=== PATIENT | male | born 1965 | race Caucasian/White ===

== ENCOUNTER 2021-10-08 00:16 | Emergency (ER) | payer OTHER ==
--- NOTE | 2021-10-08 00:48 | EDM.PDOC ---
ED HPI GENERAL MEDICAL PROBLEM - General Chief Complaint: Respiratory Problem Stated Complaint: SOB Time Seen by Provider: 10/08/21 00:44 Source of Information: Reports: Patient History Limitations: Reports: No Limitations - History of Present Illness INITIAL COMMENTS - FREE TEXT/NARRATIVE: Patient is a 56-year-old male who is complaining of heart palpitations that make him feel short of breath. Patient feels near syncopal when he has these palpitations and they frequently wake him up from sleep and he feels he has not had a good night sleep or several weeks. He feels anxious when he gets the symptoms and feels near syncopal. He does not have any chest pain or pressure in between episodes and has somewhere between 2 and a dozen of these every day for several months. Patient's only past medical history is "a spot on my heart the size of a dime". Patient had a cardiac cath many years ago and had no blocked vessels but was told there is an area of his heart that was "". He has not seen a lounge car attendant for over a decade. Patient is feeling short of breath when he has these palpitations. He denies any bloody or tarry stools. He denies using drugs or alcohol. He has been seen at [facility] in [place] recently for his shortness of breath symptoms and he has been seen in the clinic several times for this and is currently on Zithromax for this and was on prednisone a few weeks ago which did help him feel better. Patient has a nonproductive cough. He denies any swelling to his calves or ankles. Patient does feel worse when he lays down because he seems to have more frequent palpitations at night when he is trying to sleep. Patient was also given albuterol inhaler with one of his recent visits which he feels does not help his symptoms. He is somewhat irritable and cranky when questioned about his symptoms and his medical decision making. Patient has not been vaccinated for Covid Duration: Week(s): (4), Getting Worse, Intermittent Location: Reports: Chest Severity: Moderate Improves with: Reports: None Worsens with: Reports: Rest Associated Symptoms: Reports: Cough, Shortness of Breath. Denies: Diaphoresis, Fever/Chills, Nausea/Vomiting - Related Data Allergies Allergy/AdvReac Type Severity Reaction Status Date / Time No Known Allergies Allergy Verified 10/08/21 00:38 Home Meds: Home Meds Albuterol Sulfate [Proair Respiclick] 1 puff INH Q4H PRN 10/08/21 [History] Azithromycin 250 mg PO DAILY 10/08/21 [History] Cholecalciferol (Vitamin D3) [Vitamin D3] 1 tab PO DAILY 10/08/21 [History] Echinacea Purpurea Extract [Echinacea] 1 tab PO DAILY 10/08/21 [History] Metoprolol Tartrate [Lopressor] 25 mg PO Q12HR #60 tab 10/08/21 [Rx] Niacin 1 tab PO DAILY 10/08/21 [History] Potassium Chloride [Klor-Con] 20 meq PO DAILY 10/08/21 [History] ED ROS GENERAL - Review of Systems Review Of Systems: Comprehensive ROS is negative, except as noted in HPI. Respiratory: Reports: Shortness of Breath Cardiovascular: Reports: Lightheadedness, Palpitations. Denies: Chest Pain GI/Abdominal: Reports: No Symptoms Skin: Reports: No Symptoms Neurological: Reports: No Symptoms Psychiatric: Reports: No Symptoms ED EXAM, GENERAL - Physical Exam Exam: See Below Exam Limited By: No Limitations General Appearance: Alert, No Apparent Distress Neck: Normal Inspection Respiratory/Chest: No Respiratory Distress, Lungs Clear, Normal Breath Sounds Cardiovascular: Regular Rate, Rhythm, No Murmur GI/Abdominal: Normal Bowel Sounds, Soft, Non-Tender Extremities: Normal Inspection, No Pedal Edema Neurological: Alert, Oriented Psychiatric: Anxious, Other (Angry affect) Skin Exam: Warm, Dry #1 Interpretation EKG Date: 10/07/21 Rhythm: NSR P-Wave: Present QRS: Normal ST-T: Normal Comparison: NA - No Prior EKG EKG Interpretation Comments: Normal sinus rhythm with reticular changes. She does have left atrial enlargement. Course - Vital Signs Text/Narrative:: Patient is having frequent PVCs. He did have a 14 beat run of V. tach. I have discussed this with Dr. Oleary lounge car attendant at [facility] in [place] who felt patient would benefit by some Lopressor 25 mg p.o. and felt he would need to be admitted for observation for 24 hours to determine whether the Lopressor is working and how many runs of V. tach patient is having. Patient states he has somewhere between 2 and a dozen runs of V. tach every day for the past month or even longer. He is very symptomatic with these becoming very lightheaded and feeling the palpitations and feeling short of breath by the last and then anxious afterwards. When patient was informed of lounge car attendant recommendation he states he cannot stay since he has several pets and no one they can possibly take care of them since the of his last October. He has no friends or family in the area. Patient is willing to have Holter monitor placed and to go home without and follow-up with his PCP for lounge car attendant referral and to adjust his Lopressor as needed. Last Recorded V/S: Last Vital Signs Temp 96.6 F L 10/08/21 00:31 Pulse 106 H 10/08/21 00:31 Resp 19 10/08/21 00:31 BP 117/96 H 10/08/21 00:31 Pulse Ox 92 L 10/08/21 01:17 - Orders/Labs/Meds Orders: Active Orders 24 hr Category Date Time Status Holter Monitor 48 Hours [RC] .PRN Care 10/08/21 03:29 Active RT Aerosol Therapy [RC] ASDIRECTED Care 10/08/21 01:08 Active Chest 1V Frontal [CR] Stat Exams 10/08/21 01:07 Taken Labs: Laboratory Tests 10/08/21 10/08/21 10/08/21 Range/Units 01:25 01:25 01:25 WBC 8.26 (4.23-9.07) K/mm3 RBC 5.33 (4.63-6.08) M/mm3 Hgb 16.6 (13.7-17.5) gm/dl Hct 49.3 (40.1-51.0) % MCV 92.5 H (79.0-92.2) fl MCH 31.1 (25.7-32.2) pg MCHC 33.7 (32.2-35.5) g/dl RDW Std Deviation 44.8 H (35.1-43.9) fL Plt Count 190 (163-337) K/mm3 MPV 10.8 (9.4-12.3) fl Neutrophils % (Manual) 71 H (40-60) % Band Neutrophils % 0 (0-10) % Lymphocytes % (Manual) 18 L (20-40) % Atypical Lymphs % 0 % Monocytes % (Manual) 9 (2-10) % Eosinophils % (Manual) 2 (0.8-7.0) % Basophils % (Manual) 0 L (0.2-1.2) Platelet Estimate Adequate RBC Morph Comment Normal D-Dimer, Quantitative 0.48 (0.19-0.50) mg/L Troponin I < 0.017 (0.00-0.056) ng/mL NT-Pro-B Natriuret Pep (0-125) pg/mL Influenza Type A RNA (NEGATIVE) Influenza Type B RNA (NEGATIVE) SARS-CoV-2 RNA (BARBARA) (NEGATIVE) 10/08/21 10/08/21 Range/Units 01:25 01:32 WBC (4.23-9.07) K/mm3 RBC (4.63-6.08) M/mm3 Hgb (13.7-17.5) gm/dl Hct (40.1-51.0) % MCV (79.0-92.2) fl MCH (25.7-32.2) pg MCHC (32.2-35.5) g/dl RDW Std Deviation (35.1-43.9) fL Plt Count (163-337) K/mm3 MPV (9.4-12.3) fl Neutrophils % (Manual) (40-60) % Band Neutrophils % (0-10) % Lymphocytes % (Manual) (20-40) % Atypical Lymphs % % Monocytes % (Manual) (2-10) % Eosinophils % (Manual) (0.8-7.0) % Basophils % (Manual) (0.2-1.2) Platelet Estimate RBC Morph Comment D-Dimer, Quantitative (0.19-0.50) mg/L Troponin I (0.00-0.056) ng/mL NT-Pro-B Natriuret Pep 1788 H (0-125) pg/mL Influenza Type A RNA Negative (NEGATIVE) Influenza Type B RNA Negative (NEGATIVE) SARS-CoV-2 RNA (BARBARA) Negative (NEGATIVE) Meds: Medications Discontinued Medications Generic Name Dose Route Start Last Admin Trade Name Freq PRN Reason Stop Dose Admin Albuterol/Ipratropium 3 ml 10/08/21 01:08 10/08/21 01:15 Albuterol/Ipratropium 3.0-0.5 Mg/3 Ml Neb Soln NEB 10/08/21 01:09 3 ml ONETIME ONE Administration Metoprolol Tartrate 25 mg 10/08/21 03:13 Metoprolol Tartrate 25 Mg Tab PO 10/08/21 03:14 ONETIME ONE Departure - Departure Time of Disposition: 03:46 Disposition: Home, Self-Care 01 Condition: Fair Clinical Impression: Ventricular tachycardia - Discharge Information Instructions: Ventricular Tachycardia Referrals: Lorna Woodard LAP WELDER [Primary Care Provider] - Forms: ED Department Discharge Additional Instructions: Follow-up with PCP and lounge car attendant over the next week for recheck and to adjust your Lopressor. Return to ER symptoms are worse. Pressor as prescribed. Sepsis Event Note (ED) - Focused Exam Vital Signs: Vital Signs Temp Pulse Resp BP Pulse Ox Pulse Ox 10/08/21 01:17 92 L 10/08/21 00:31 96.6 F L 106 H 19 117/96 H 94 L - My Orders Last 24 Hours: My Active Orders 10/08/21 01:07 Chest 1V Frontal [CR] Stat 10/08/21 01:08 RT Aerosol Therapy [RC] ASDIRECTED 10/08/21 03:29 Holter Monitor 48 Hours [RC] .PRN - Assessment/Plan Last 24 Hours: My Active Orders 10/08/21 01:07 Chest 1V Frontal [CR] Stat 10/08/21 01:08 RT Aerosol Therapy [RC] ASDIRECTED 10/08/21 03:29 Holter Monitor 48 Hours [RC] .PRN
[2021-10-08] MEDS ORDERED: Albuterol/Ipratropium 3.0-0.5 MG/3 ML Neb Soln NEB ONE (01:08)
[2021-10-08 02:15] LABS: CORONAVIRUS COVID-19 NAA NEGATIVE (NEGATIVE)
[2021-10-08] MEDS ORDERED: Metoprolol Tartrate 25 MG Tab PO ONE (03:13)
--- NOTE | 2021-10-08 06:53 | CR ---
Chest: Frontal view of the chest was obtained. Comparison: No prior chest imaging is available. Heart is slightly enlarged. Upper mediastinum is within normal limits. Lungs are clear with no acute parenchymal change. Bony structures show nothing acute. Impression: 1. Heart size is slightly prominent. 2. No other acute abnormality is seen. Diagnostic code #2
--- NOTE | 2021-10-11 05:02 | PCM.EKG ---
#1 Interpretation EKG Date: 10/08/21 Time: 12:36 Rhythm: Other (Sinus tachycardia) Rate (Beats/Min): 105 [place]: Normal P-Wave: Enlarged (LAE) QRS: Other (Late transition) ST-T: Elevated (J-point elevation V2, V3, but no ischemic changes.) QT: Prolonged (QTc 480 ms)
== END 2021-10-08 04:50 | disposition home or self-care (01) ==
LOC: JD.ED 00:16
DX: I47.2 Ventricular tachycardia (principal); Z20.822 Contact with and (suspected) exposure to COVID-19
CPT/HCPCS: 0240U; 36415; 71045; 83880; 84484; 85007; 85027; 85379; 93225; 93226; 94640; 99285; A9270; J7620-GY

== ENCOUNTER 2021-10-10 22:47 | Emergency (ER) | payer OTHER ==
--- NOTE | 2021-10-10 23:23 | EDM.PDOC ---
ED HPI GENERAL MEDICAL PROBLEM - General Chief Complaint: Respiratory Problem Stated Complaint: SOB Time Seen by Provider: 10/10/21 22:54 Source of Information: Reports: Patient History Limitations: Reports: No Limitations - History of Present Illness INITIAL COMMENTS - FREE TEXT/NARRATIVE: Mr. Becerra is a 56-year-old man who now presents the ED stating that he is here for the same thing that brought him in 2 days ago - dyspnea and lightheadedness. He states that he has been feeling dyspneic for several weeks, worse if he is supine. He states that he feels lightheaded whenever he feels dyspneic. He also reports having chills without fever for the past 3 hours. He expressly denies experiencing chest pain or palpitations. He states that he had a small amount of watery diarrhea today, He states that he saw his PCP about his symptoms last week, and was prescribed a Z-Reynaldo for "walking pneumonia". Medical records indicate that he was then seen in this ED early Friday morning, 10/08/2021. He was found to be slightly tachycardic at 106 bpm, and slightly hypoxemic, with an SpO2 of 92% on room air. A physical examination does not appear to have been documented. Work-up included a CBC, troponin, pro-BNP, D- dimer, swab for the SARS-CoV-2 virus and influenza A + B viruses, and a chest x- ray. His pro-BNP was found to be modestly elevated at 1788, and his chest x-ray showed slight cardiomegaly, but was otherwise unremarkable. The remainder of his work-up was unremarkable. He was treated with a DuoNeb and started on metoprolol 25 mg po. He was discharged home with a 48-hour Holter monitor, which he states he turned in this morning. He also states that he was prescribed metoprolol 25 mg po BID, which he states he has been taking, although I do not see that prescription. Here in the ED tonight, the patient is found to be hemodynamically stable, afebrile, saturating 99 to 100% on room air. He appears to be somewhat anxious, and is short-tempered, not wishing to answer questions. He does not appear to be in acute distress. Other than his dyspnea, lightheadedness, chills, and diarrhea, the patient denies having a recent fever, sore throat, ear pain, nasal or sinus congestion, cough, chest pain, palpitations, nausea, vomiting, constipation, abdominal pain, urinary symptoms, recent weight gain or weight loss, recent bloody bowel movements or black bowel movements, recent joint aches, headaches, or rashes. The patient's PCP is Lorna Woodard NP. He has not received a COVID vaccination, nor an influenza vaccination this season. - Related Data Allergies Allergy/AdvReac Type Severity Reaction Status Date / Time No Known Allergies Allergy Verified 10/10/21 22:54 Home Meds: Home Meds Albuterol Sulfate [Proair Respiclick] 1 puff INH Q4H PRN 10/08/21 [History] Azithromycin 250 mg PO DAILY 10/08/21 [History] Cholecalciferol (Vitamin D3) [Vitamin D3] 1 tab PO DAILY 10/08/21 [History] Echinacea Purpurea Extract [Echinacea] 1 tab PO DAILY 10/08/21 [History] Metoprolol Tartrate [Lopressor] 25 mg PO Q12HR #60 tab 10/08/21 [Rx] Niacin 1 tab PO DAILY 10/08/21 [History] Potassium Chloride [Klor-Con] 20 meq PO DAILY 10/08/21 [History] Past Medical History HEENT History: Reports: Impaired Vision (wears glasses) Cardiovascular History: Reports: Other (See Below) (Patient reports part of his heart is "") - Infectious Disease History Infectious Disease History: Reports: Novel Coronavirus - Past Surgical History HEENT Surgical History: Reports: Tonsillectomy Cardiovascular Surgical History: Reports: Other (See Below) (Coronary angiogram 2017 or 2018 in [facility]) Social & Family History - Tobacco Use Tobacco Use Status *Q: Never Tobacco User - Caffeine Use Caffeine Use: Reports: None - Alcohol Use Alcohol Use History: No - Recreational Drug Use Recreational Drug Use: No - Living Situation & Occupation Living situation: Reports: , Alone 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 ED EXAM, GENERAL - Physical Exam Exam: See Below Exam Limited By: No Limitations General Appearance: Alert, WD/WN, No Apparent Distress Eye Exam: Bilateral Eye: EOMI, Normal Inspection Ears: Normal External Exam, Hearing Grossly Normal Nose: Normal Inspection Throat/Mouth: Normal Inspection, Normal Lips, Normal Voice, No Airway Compromise Head: Atraumatic, Normocephalic Neck: Normal Inspection, Full Range of Motion Respiratory/Chest: No Respiratory Distress, Lungs Clear, Normal Breath Sounds, No Accessory Muscle Use. No: Decreased Breath Sounds, Crackles, Rhonchi, Wheezing, Stridor, Prolonged Expiration Cardiovascular: Normal Peripheral Pulses, Regular Rate, Rhythm, No Edema, No Gallop, No JVD, No Murmur, No Rub Peripheral Pulses: 3+: Radial (L), Radial (R) GI/Abdominal: Normal Bowel Sounds, Soft, Non-Tender, No Organomegaly, No Distention, No Abnormal Bruit, No Mass Back Exam: Normal Inspection, Full Range of Motion, NT Extremities: Normal Inspection, Normal Range of Motion, No Pedal Edema, Normal Capillary Refill Neurological: Alert, Oriented, Normal Cognition, No Motor/Sensory Deficits Psychiatric: Anxious Skin Exam: Warm, Dry, Intact, Normal Color, No Rash #1 Interpretation EKG Date: 10/10/21 Time: 23:28 Rhythm: NSR Rate (Beats/Min): 88 [place]: Normal P-Wave: Present QRS: Other (Possible LVH) ST-T: Elevated (J-point elevation V2-V5, but no ischemic changes) QT: Normal Comparison: NA - No Prior EKG Course - Vital Signs Last Recorded V/S: Last Vital Signs Temp 36.6 C 10/10/21 22:55 Pulse 88 10/10/21 22:55 Resp 16 10/10/21 22:55 BP 111/87 10/10/21 22:55 Pulse Ox 99 10/10/21 22:55 Orthostatic Blood Pressure [ 103/83 Standing] Orthostatic Blood Pressure [ 101/84 Supine] - Orders/Labs/Meds Orders: Active Orders 24 hr Category Date Time Status Orthostatic Vital Signs [RC] STAT Care 10/10/21 23:15 Active COVID-19/FLU A+B [MOLEC] Stat Lab 10/10/21 23:17 Ordered Labs: Laboratory Tests 10/10/21 10/10/21 10/10/21 Range/Units 23:33 23:33 23:35 Puncture Site Lt radial ABG pH 7.40 (7.35-7.45) ABG pCO2 33.1 L (35.0-45.0) mmHg ABG pO2 81.0 (80.0-100.0) mmHg ABG HCO3 20.0 L (22.0-26.0) meq/L ABG O2 Saturation 96.6 (96.0-97.0) % ABG Base Excess -3.3 L (-2-2.0) Darwin Test Positive A-a Gradient 27 mmHg O2 Delivery Device Room air FiO2 21.00 (21.00-100.00) % Sodium 142 (136-145) mEq/L Potassium 4.5 (3.5-5.1) mEq/L Chloride 106 (98-107) mEq/L Carbon Dioxide 30 (21-32) mEq/L Anion Gap 10.5 (5-15) BUN 25 H (7-18) mg/dL Creatinine 1.4 H (0.7-1.3) mg/dL Est Cr Clr Drug Dosing 65.44 mL/min Estimated GFR (MDRD) 53 (>60) mL/min BUN/Creatinine Ratio 17.9 (14-18) Glucose 109 H (70-99) mg/dL Calcium 8.8 (8.5-10.1) mg/dL Magnesium 1.9 (1.8-2.4) mg/dL Total Bilirubin 1.1 H (0.2-1.0) mg/dL AST 16 (15-37) U/L ALT 33 (16-63) U/L Alkaline Phosphatase 65 (46-116) U/L C-Reactive Protein <0.2 (<1.0) mg/dL NT-Pro-B Natriuret Pep 2366 H (0-125) pg/mL Total Protein 6.5 (6.4-8.2) g/dl Albumin 3.6 (3.4-5.0) g/dl Globulin 2.9 gm/dL Albumin/Globulin Ratio 1.2 (1-2) TSH 3rd Generation 4.788 H (0.358-3.74) uIU/mL - Re-Assessments/Exams Free Text/Narrative Re-Assessment/Exam: 10/10/21 23:18 Although the patient states that he is having difficulty breathing, he is actually hyperventilating, with an oxygen saturation of 100% on room air. His lungs are clear to auscultation bilaterally. He repeatedly referenced an irregular heartbeat, but acknowledged that he himself has not had any palpitations, and that he has not had documentation of an irregular heartbeat, such as on an ECG or admitting office escort. During the entirety of my evaluation, the patient's heart beat did not vary by more than 1 bpm on his admitting office escort. I have ordered a work-up that includes orthostatics, several blood tests, an ABG, a swab for the SARS-CoV-2 virus and influenza A + B viruses, and an ECG. I am trying to avoid repeating tests performed on Friday, such as a CBC, troponin and chest x-ray, since all of these were normal, but I have included a repeat pro-BNP, since it was elevated on Friday, and a swab for the SARS-CoV-2 virus and influenza A + B viruses, since these can be falsely negative. 10/10/21 23:40 Notified by Alessandra NEWELL that the patient is refusing the swab for the SARS-CoV-2 virus and influenza A + B viruses, because they were negative 2 days ago. 10/11/21 00:12 The patient is not orthostatic. His ECG shows no dysrhythmias or ischemic changes. 10/11/21 00:29 The patient's CMP is remarkable for a BUN/Cr mildly elevated at 25/1.4, and slight hyperglycemia of 109, with the remainder of his CMP being unremarkable. His magnesium level is within normal limits at 1.9. His CRP is undetectably low. His TSH is elevated at 4.788. His pro-BNP is modestly elevated at 2366. His ABG demonstrates a chronic primary respiratory alkalosis with secondary metabolic acidosis and additional metabolic alkalosis. 10/11/21 00:34 Test results discussed at length with the patient. The ABG confirms that the patient was hyperventilating, which is usually caused by anxiety, although can be caused by a variety of medical conditions including pain, a head injury with increased intracranial pressure, metabolic acidosis, DKA, uremia, salicylate toxicity, hypocalcemia, hypoglycemia, hyperthyroidism, liver failure, , severe anemia, sepsis, acute coronary event, sympathomimetic toxidrome, organic central nervous system disorders, pneumothorax, pneumonia, dysrhythmia, PE, and CHF. These have been ruled out. I suspect that the patient's symptoms are due to anxiety. 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 He was previously on escitalopram, but has not taken any since last October, since he was no longer under a great deal of stress. I suggested that he restart the escitalopram, but under the supervision of his PCP. Additionally, since his pro-BNP is modestly elevated, I recommended an outpatient echocardiogram. The patient stated that he has an appointment to see Lorna Woodard at 9:45 this morning. Departure - Departure Time of Disposition: :10 Disposition: Home, Self-Care 01 Condition: Good Clinical Impression: Hyperventilation syndrome - Discharge Information *PRESCRIPTION DRUG MONITORING PROGRAM REVIEWED*: Not Applicable *COPY OF PRESCRIPTION DRUG MONITORING REPORT IN PATIENT JACQUELINE: Not Applicable Referrals: Lorna Woodard NP [Primary Care Provider] - Forms: ED Department Discharge Additional Instructions: You were seen in the emergency room for persistent/recurrent shortness of breath with associated lightheadedness, along with chills and some watery diarrhea. Your oxygen saturation was noticed to be 100% on room air, consistent with hyperventilation. Your ABG confirmed that you have been hyperventilating. Hyperventilation is usually caused by anxiety, although can be caused by a variety of medical conditions including pain, a head injury with increased intracranial pressure, metabolic acidosis, DKA, uremia, salicylate toxicity, hypocalcemia, hypoglycemia, hyperthyroidism, liver failure, severe anemia, sepsis, acute coronary event, sympathomimetic toxidrome, organic central nervous system disorders, pneumothorax, pneumonia, dysrhythmia, PE, and CHF. The tests that were performed on Friday and tonight have ruled these out. You may benefit by restarting your Escitalopram, however, we recommend that you do that under the supervision of your PCP, Lorna Woodard NP. Because your pro-BNP was modestly elevated, we also recommend that you undergo an outpatient echocardiogram. We recommend that you discuss both of these issues with her when you see her at 9:45 this morning. If any other problems, please do not hesitate to return to the ER. Sepsis Event Note (ED) - Evaluation Sepsis Screening Result: No Definite Risk - Focused Exam Vital Signs: Vital Signs Temp Pulse Resp BP Pulse Ox 10/10/21 22:55 36.6 C 88 16 111/87 99 - My Orders Last 24 Hours: My Active Orders 10/10/21 23:15 Orthostatic Vital Signs [RC] STAT 10/10/21 23:17 COVID-19/FLU A+B [MOLEC] Stat - Assessment/Plan Last 24 Hours: My Active Orders 10/10/21 23:15 Orthostatic Vital Signs [RC] STAT 10/10/21 23:17 COVID-19/FLU A+B [MOLEC] Stat
== END 2021-10-11 01:21 | disposition home or self-care (01) ==
LOC: JD.ED 22:47
DX: F45.8 Other somatoform disorders (principal); Z86.16 Personal history of COVID-19; Z79.899 Other long term (current) drug therapy
CPT/HCPCS: 36415; 36600; 80053; 82803; 83735; 83880; 84443; 86140; 93005; 99285-25

== ENCOUNTER 2021-10-18 14:55 | Emergency (ER) | payer SELFPAY ==
--- NOTE | 2021-10-18 16:30 | EDM.PDOC ---
ED HPI GENERAL MEDICAL PROBLEM - General Chief Complaint: Cardiovascular Problem Stated Complaint: SENT BY LORNA MEDARNO Time Seen by Provider: 10/18/21 15:32 Source of Information: Reports: Patient, Provider (ALEAH Tapia, at 15:45) History Limitations: Reports: No Limitations - History of Present Illness INITIAL COMMENTS - FREE TEXT/NARRATIVE: Mr. Becerra is a pleasant 56-year-old gentleman who is now sent to the ED from his PCPs office after an echocardiogram that he underwent earlier today demonstrated A. fib/a flutter. The patient was seen in this ED on 10/10/2021 for several weeks of dyspnea and lightheadedness. His oxygen saturation was noted to be 99-100% on room air. An extensive work-up confirmed hyperventilation syndrome, a modestly elevated TSH, a pro-BNP elevated at 2366, and mild renal insufficiency. He was advised to follow-up with his PCP to discuss restarting his Escitalopram and arrange for an outpatient echocardiogram. The patient states that he did not experience chest pain, palpitations or lightheadedness during his echocardiogram. I discussed his case with his PCP at 15:45. She informed me that she was unaware of whether or the echocardiogram indicated tachycardia or not. The LVEF was 30 to 35%, and there was regional wall motion abnormality. She preferred Eliquis as an anticoagulant. She reported that the patient has an appointment to see a mainspring barrel assembly cleaner on 10/30/2021 at 08:30 at [facility]. The patient, however, was under the impression that the appoint was for 11/29/2021. Here in the ED, the patient was initially found to be slightly tachycardic at 102 bpm, otherwise, he is hemodynamically stable, afebrile, saturating 95% on room air. His patient monitor indicates a normal sinus rhythm with occasional PVCs. The patient reports that he has been feeling well for the past 4 days, sleeping well, and able to breathe normally again. He elected to not restart the escitalopram, citing side effects. He denies having a recent fever, chills, sore throat, ear pain, nasal or sinus congestion, cough, chest pain, palpitations, nausea, vomiting, constipation, diarrhea, abdominal pain, urinary symptoms, recent weight gain or weight loss, recent bloody bowel movements or black bowel movements, recent joint aches, headaches, or rashes. The patient's PCP is Lorna Medrano NP. He has not received a COVID vaccination, nor an influenza vaccination this season. - Related Data Allergies Allergy/AdvReac Type Severity Reaction Status Date / Time No Known Allergies Allergy Verified 10/18/21 15:24 Home Meds: Home Meds Cholecalciferol (Vitamin D3) [Vitamin D3] 1 tab PO DAILY 10/08/21 [History] Echinacea Purpurea Extract [Echinacea] 1 tab PO DAILY 10/08/21 [History] Niacin 1 tab PO DAILY 10/08/21 [History] Potassium Chloride [Klor-Con] 20 meq PO DAILY 10/08/21 [History] Apixaban [Eliquis] 5 mg PO Q12H #60 tablet 10/18/21 [Rx] Past Medical History HEENT History: Reports: Impaired Vision (wears glasses) Cardiovascular History: Reports: Heart Failure (LVEF 30-35% echo 10/18/2021), MN (+ regional wal motiion deficits echo 10/18/2021) - Infectious Disease History Infectious Disease History: Reports: Novel Coronavirus - Past Surgical History HEENT Surgical History: Reports: Tonsillectomy Cardiovascular Surgical History: Reports: Other (See Below) (Coronary angiogram 2017 or 2018 in [facility]) Social & Family History - Tobacco Use Tobacco Use Status *Q: Never Tobacco User Second Hand Smoke Exposure: No - Alcohol Use Alcohol Use History: No - Recreational Drug Use Recreational Drug Use: No - Living Situation & Occupation Living situation: Reports: , Alone 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 ED EXAM, GENERAL - Physical Exam Exam: See Below Exam Limited By: No Limitations General Appearance: Alert, WD/WN, No Apparent Distress Eye Exam: Bilateral Eye: EOMI, Normal Inspection Ears: Normal External Exam, Hearing Grossly Normal Nose: Normal Inspection Throat/Mouth: Normal Inspection, Normal Lips, Normal Voice, No Airway Compromise Head: Atraumatic, Normocephalic Neck: Normal Inspection, Full Range of Motion Respiratory/Chest: No Respiratory Distress, Lungs Clear, Normal Breath Sounds, No Accessory Muscle Use Cardiovascular: Normal Peripheral Pulses, No Edema, No Gallop, No JVD, No Murmur, No Rub, Tachycardia (regular) Peripheral Pulses: 3+: Radial (L), Radial (R) GI/Abdominal: Normal Bowel Sounds, Soft, Non-Tender, No Organomegaly, No Distention, No Abnormal Bruit, No Mass Back Exam: Normal Inspection, Full Range of Motion, NT Extremities: Normal Inspection, Normal Range of Motion, No Pedal Edema, Normal Capillary Refill Neurological: Alert, Oriented, Normal Cognition, No Motor/Sensory Deficits Psychiatric: Normal Affect Skin Exam: Warm, Dry, Intact, Normal Color, No Rash #1 Interpretation EKG Date: 10/18/21 Time: 15:13 Rhythm: Other (Sinus tachycardia with 2 PVCs) Rate (Beats/Min): 107 [place]: Normal P-Wave: Enlarged (Possible MAXIMUS) QRS: Normal ST-T: Normal QT: Prolonged (QTc 491 ms) Comparison: No Change (10/10/2021) Course - Vital Signs Last Recorded V/S: Last Vital Signs Temp 37.0 C 10/18/21 16:40 Pulse 94 10/18/21 16:40 Resp 18 10/18/21 16:40 BP 111/92 H 10/18/21 16:40 Pulse Ox 97 10/18/21 16:40 - Re-Assessments/Exams Free Text/Narrative Re-Assessment/Exam: 10/18/21 16:25 As above, an echocardiogram earlier today showed the patient to be in atrial fibrillation, although we do not know if it was rate controlled or not. It also demonstrated a LVEF of 30 to 35%, indicating CHF, and regional wall motion abnormalities, consistent with a prior MN. This puts his [id number] score at 2, therefore anticoagulation is recommended. The patient is not a fall risk. The patient's PCP prefers Eliquis. I will submit a prescription for him to start tonight, 5 mg po Q12 hrs. The patient states that he already has metoprolol at home, that he is not currently taking. He does not know the dose. I will have him restart that. He is to contact Lorna Medrano's office tomorrow to clarify if his appointment with the Infant Babysitter is on either October 30 or November 29. If he has any symptoms between now and his Cardiology appointment, he is to follow-up with Ms. Medrano; she may at that time adjust his metoprolol. I will also provide the patient a note to return to work on Friday, per his request. Departure - Departure Time of Disposition: 16:30 Disposition: Home, Self-Care 01 Condition: Good Clinical Impression: Paroxysmal atrial fibrillation, CHF (congestive heart failure) Prescriptions: Apixaban [Eliquis] 5 mg PO Q12H #60 tablet Instructions: Heart Failure, Self-Care, [id number], Atrial Fibrillation, [id number] Referrals: Lorna Medrano NP [Primary Care Provider] - Forms: ED Department Discharge, ED Return to Work/School Form Additional Instructions: You were sent to the emergency room after an echocardiogram that you underwent today demonstrated that you were in atrial fibrillation/atrial flutter, along with evidence of congestive heart failure and a prior heart attack. Work-up in the ER included an ECG, which demonstrated sinus tachycardia, not at rial fibrillation/atrial flutter. In accordance with current guidelines, a prescription for the anticoagulant Eliquis has been sent to the [facility]. Take 1 tablet of Eliquis every 12 hours, starting tonight, , 10/18/2021, as prescribed. As discussed, we recommend that you restart your previously prescribed metoprolol, tonight, and take every 12 hours, as prescribed. Please contact the office of your PCP, Lorna Medrano NP, in the morning, to clarify whether your cardiology appointment is on 10/30/2021, or , 11/29/2021. Follow-up with your Infant Babysitter at your previously scheduled appointment. If, between now and your Cardiology appointment, you are having any significant symptoms, you are to follow-up with your PCP, Lorna Medrano NP, for further evaluation. If any other problems, please do not hesitate to return to the ER. A note to return to work this coming 10/22/2021, has been provided to you. Sepsis Event Note (ED) - Focused Exam Vital Signs: Vital Signs Temp Pulse Resp BP Pulse Ox 10/18/21 16:40 37.0 C 94 18 111/92 H 97 10/18/21 16:00 36.6 C 102 H 19 111/84 95
== END 2021-10-18 16:40 | disposition home or self-care (01) ==
LOC: JD.ED 14:55
DX: I48.0 Paroxysmal atrial fibrillation (principal); I50.9 Heart failure, unspecified; Z79.01 Long term (current) use of anticoagulants; Z86.16 Personal history of COVID-19
CPT/HCPCS: 93005; 99284-25

== ENCOUNTER 2021-10-22 22:25 | Emergency (ER) | payer SELFPAY ==
[2021-10-23] MEDS ORDERED: LORazepam 1 MG Tab PO ONE (02:08)
--- NOTE | 2021-10-23 03:08 | EDM.PDOC ---
<Frank Medel - Last Filed: 10/23/21 03:03> ED HPI GENERAL MEDICAL PROBLEM - General Chief Complaint: Cardiovascular Problem Stated Complaint: SOB Time Seen by Provider: 10/23/21 00:00 Source of Information: Reports: Patient, Old Records History Limitations: Reports: No Limitations - History of Present Illness INITIAL COMMENTS - FREE TEXT/NARRATIVE: Patient is a 56-year-old male presenting to the emergency room with a chief complaint of palpitations. This is patient's fourth visit in approximately 2 weeks. He was found on previous work-up to have evidence of CHF with an ejection fraction of 35%. He also had a Holter monitor which did demonstrate runs of ventricular tachycardia as well as supraventricular tachycardia. Patient is here today because he states he has not slept in 4 days. He states he is extremely scared of stopping breathing. He also states he frequently feels palpitations and like his heart is beating in his face. He states he is unable to see a clerk supervisor until the end of October. Furthermore, he is not starting Eliquis because of its significant financial cost to him. We discussed alternatives with Coumadin but patient states he does not want Coumadin because he knows somebody that has liver issues from it. Currently, he is taking metoprolol but this did not seem to help her symptoms at all. - Related Data Allergies Allergy/AdvReac Type Severity Reaction Status Date / Time No Known Allergies Allergy Verified 10/18/21 15:24 Home Meds: Home Meds Cholecalciferol (Vitamin D3) [Vitamin D3] 1 tab PO DAILY 10/08/21 [History] Echinacea Purpurea Extract [Echinacea] 1 tab PO DAILY 10/08/21 [History] Niacin 1 tab PO DAILY 10/08/21 [History] Potassium Chloride [Klor-Con] 20 meq PO DAILY 10/08/21 [History] Apixaban [Eliquis] 5 mg PO Q12H #60 tablet 10/18/21 [Rx] Past Medical History HEENT History: Reports: Impaired Vision Other HEENT History: wears glasses Cardiovascular History: Reports: Heart Failure Other Cardiovascular History: Patient reports part of his heart is "" Respiratory History: Reports: Pneumonia, Recurrent, Other (See Below) Other Respiratory History: COVID--March 2020. 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) ED ROS GENERAL - Review of Systems Review Of Systems: See Below Free Text/Narrative/Comment: In addition to that documented in the HPI above, the additional ROS was obtain ed: Constitutional: Denies fevers or chills Eyes: Denies vision changes ENMT: Denies sore throat CV: Denies chest pain Resp: Denies SOB GI: Denies vomiting or diarrhea : Denies painful urination MSK: Denies recent trauma Skin: Denies new rashes Neuro: Denies new numbness or tingling or weakness Endocrine: Denies unexpected weight loss Heme: Denies bleeding disorders ED EXAM, GENERAL - Physical Exam Exam: See Below Free Text/Narrative:: I have reviewed the triage vital signs. Of note during my examination, patient did have 2 runs of ventricular tachycardia which was captured on mold laminator. Patient's blood pressure remained within normal limits during these episodes. Const: Well nourished, well developed, appears stated age Eyes: Pupils Equal and reactive to light bilaterally, no conjunctival injection HENT: No signs of trauma or swelling, Neck supple without meningismus CV: Regular Rate Rhythm, Warm, well-perfused extremities RESP: Unlabored respiratory effort GI: soft, non-tender, non-distended, no masses MSK: No gross deformities appreciated Skin: Warm, dry. No rashes Neuro: Alert, information systems security manager II-XII grossly intact. Sensation and motor function of extremities grossly intact. Psych: Appropriate mood and affect. #1 Interpretation EKG Date: 10/22/21 Time: 22:49 Rhythm: NSR Rate (Beats/Min): 85 [place]: Normal P-Wave: Enlarged QRS: Normal ST-T: Normal QT: Prolonged Comparison: No Change EKG Interpretation Comments: Abnormal EKG Course - Re-Assessments/Exams Free Text/Narrative Re-Assessment/Exam: 10/23/21 03:10 [facility]. He agrees that patient should be evaluated by behavioral health clinician sooner rather than later. Cb behavioral health clinician on-call tonight but he does know an behavioral health clinician will be in the office tomorrow morning. Agreed to run the case by Dr. Aguirre and have his office call us regarding recommendations versus more immediate follow-up. Departure - Departure Disposition: DC/Tfer to [facility] 02 Clinical Impression: Ventricular tachycardia CHF (congestive heart failure) Qualifiers: Heart failure type: unspecified Heart failure chronicity: acute Qualified Code(s): I50.9 - Heart failure, unspecified Referrals: Lorna Woodard PROBATE CLERK [Primary Care Provider] - Forms: ED Department Discharge Sepsis Event Note (ED) - Evaluation Sepsis Screening Result: No Definite Risk <David Stock - Last Filed: 10/23/21 09:03> Course - Vital Signs Last Recorded V/S: Last Vital Signs Temp 97.6 F 10/22/21 22:45 Pulse 86 10/22/21 22:45 Resp 18 10/22/21 22:45 BP 114/94 H 10/22/21 22:45 Pulse Ox 97 10/22/21 22:45 - Orders/Labs/Meds Orders: Active Orders 24 hr Category Date Time Status CORONAVIRUS COVID-19 BARBARA [MOLEC] Stat Lab 10/23/21 08:10 Received Amiodarone In Dextrose,Iso-Osm [Nexterone in Dextrose Med 10/23/21 07:45 Active 360 MG/200 ML] 360 mg in 200 ml IV ASDIRECTED Medication Orders Amiodarone HCl/Dextrose (Nexterone In Dextrose 360 Mg/200 Ml) 360 mg in 200 mls @ 33.333 mls/hr IV ASDIRECTED RAEANN; Protocol Last Admin: 10/23/21 08:18 Dose: 33.333 mls/hr Documented by: [id number] Labs: Laboratory Tests 10/22/21 10/22/21 10/22/21 Range/Units 23:10 23:10 23:10 WBC 9.46 H (4.23-9.07) K/mm3 RBC 5.20 (4.63-6.08) M/mm3 Hgb 16.1 (13.7-17.5) gm/dl Hct 48.8 (40.1-51.0) % MCV 93.8 H (79.0-92.2) fl MCH 31.0 (25.7-32.2) pg MCHC 33.0 (32.2-35.5) g/dl RDW Std Deviation 46.1 H (35.1-43.9) fL Plt Count 161 L (163-337) K/mm3 MPV 11.9 (9.4-12.3) fl Neut % (Auto) 68.4 H (34.0-67.9) % Lymph % (Auto) 19.6 L (21.8-53.1) % [place] % (Auto) 9.2 (5.3-12.2) % Eos % (Auto) 1.6 (0.8-7.0) Baso % (Auto) 0.8 (0.1-1.2) % Neut # (Auto) 6.47 H (1.78-5.38) K/mm3 Lymph # (Auto) 1.85 (1.32-3.57) K/mm3 [place] # (Auto) 0.87 H (0.30-0.82) K/mm3 Eos # (Auto) 0.15 (0.04-0.54) K/mm3 Baso # (Auto) 0.08 (0.01-0.08) K/mm3 PT 12.9 H (9.7-12.0) SECONDS INR 1.17 Sodium 140 (136-145) mEq/L Potassium 4.1 (3.5-5.1) mEq/L Chloride 106 (98-107) mEq/L Carbon Dioxide 23 (21-32) mEq/L Anion Gap 15.1 H (5-15) BUN 23 H (7-18) mg/dL Creatinine 1.5 H (0.7-1.3) mg/dL Est Cr Clr Drug Dosing 61.07 mL/min Estimated GFR (MDRD) 49 (>60) mL/min BUN/Creatinine Ratio 15.3 (14-18) Glucose 114 H (70-99) mg/dL Calcium 8.6 (8.5-10.1) mg/dL Magnesium (1.8-2.4) mg/dL Total Bilirubin 1.3 H (0.2-1.0) mg/dL AST 33 (15-37) U/L ALT 42 (16-63) U/L Alkaline Phosphatase 69 (46-116) U/L Troponin I < 0.017 (0.00-0.056) ng/mL NT-Pro-B Natriuret Pep (0-125) pg/mL Total Protein 6.5 (6.4-8.2) g/dl Albumin 3.6 (3.4-5.0) g/dl Globulin 2.9 gm/dL Albumin/Globulin Ratio 1.2 (1-2) 10/22/21 10/22/21 Range/Units 23:10 23:10 WBC (4.23-9.07) K/mm3 RBC (4.63-6.08) M/mm3 Hgb (13.7-17.5) gm/dl Hct (40.1-51.0) % MCV (79.0-92.2) fl MCH (25.7-32.2) pg MCHC (32.2-35.5) g/dl RDW Std Deviation (35.1-43.9) fL Plt Count (163-337) K/mm3 MPV (9.4-12.3) fl Neut % (Auto) (34.0-67.9) % Lymph % (Auto) (21.8-53.1) % [place] % (Auto) (5.3-12.2) % Eos % (Auto) (0.8-7.0) Baso % (Auto) (0.1-1.2) % Neut # (Auto) (1.78-5.38) K/mm3 Lymph # (Auto) (1.32-3.57) K/mm3 [place] # (Auto) (0.30-0.82) K/mm3 Eos # (Auto) (0.04-0.54) K/mm3 Baso # (Auto) (0.01-0.08) K/mm3 PT (9.7-12.0) SECONDS INR Sodium (136-145) mEq/L Potassium (3.5-5.1) mEq/L Chloride (98-107) mEq/L Carbon Dioxide (21-32) mEq/L Anion Gap (5-15) BUN (7-18) mg/dL Creatinine (0.7-1.3) mg/dL Est Cr Clr Drug Dosing mL/min Estimated GFR (MDRD) (>60) mL/min BUN/Creatinine Ratio (14-18) Glucose (70-99) mg/dL Calcium (8.5-10.1) mg/dL Magnesium 2.0 (1.8-2.4) mg/dL Total Bilirubin (0.2-1.0) mg/dL AST (15-37) U/L ALT (16-63) U/L Alkaline Phosphatase (46-116) U/L Troponin I (0.00-0.056) ng/mL NT-Pro-B Natriuret Pep 4015 H (0-125) pg/mL Total Protein (6.4-8.2) g/dl Albumin (3.4-5.0) g/dl Globulin gm/dL Albumin/Globulin Ratio (1-2) Meds: Medications Generic Name Dose Route Start Last Admin Trade Name Freq PRN Reason Stop Dose Admin Amiodarone HCl/Dextrose 360 mg in 200 mls @ 33.333 mls/hr 10/23/21 07:45 10/23/21 08:18 Nexterone In Dextrose 360 Mg/200 Ml IV 33.333 mls/hr ASDIRECTED RAEANN Administration Protocol Discontinued Medications Generic Name Dose Route Start Last Admin Trade Name Freq PRN Reason Stop Dose Admin Aspirin 324 mg 10/23/21 07:45 10/23/21 08:00 Aspirin 81 Mg Tab.Chew PO 10/23/21 07:46 324 mg ONETIME ONE Administration Amiodarone HCl/Dextrose 100 mls @ 600 mls/hr 10/23/21 07:44 10/23/21 07:54 Nexterone In Dextrose 150 Mg/100 Ml IV 10/23/21 07:53 600 mls/hr .BOLUS ONE Administration Protocol Magnesium Sulfate 2 gm/ Premix 50 mls @ 25 mls/hr 10/23/21 07:44 10/23/21 07:57 IV 10/23/21 09:43 25 mls/hr ONETIME ONE Administration Lorazepam 1 mg 10/23/21 02:08 10/23/21 02:31 Lorazepam 1 Mg Tab PO 10/23/21 02:09 1 mg ONETIME ONE Administration - Re-Assessments/Exams Free Text/Narrative Re-Assessment/Exam: 10/23/21 08:[address] Medel[address] Dr Aguirre the behavioral health clinician at [facility] called me back and he was very concerned for this patient. He is at high risk from sudden from V-tach. He needs a heart cath and AICD placement. He wanted the patient to get aspirin, amiodarone and magnesium. I ordered 2 grams of magnesium and 150mg bolus of amiodarone followed by an amiodarone drip at 1mg/min. I called [facility] one call and talked with the ER doctor Dr Woodard who would not accept the patient. One call talked with the clerk supervisor chyron operator Dr Pacheco and he wanted the patient directly admitted to the floor to the hospitalist. I talked with Dr Harvey the hospitalist and he accepted the patient. Departure - Departure Time of Disposition: 09:10 Reason for Transfer *Q: Other Condition: Serious Sepsis Event Note (ED) - Focused Exam Vital Signs: Vital Signs Temp Pulse Resp BP Pulse Ox 10/22/21 22:45 97.6 F 86 18 114/94 H 97 - My Orders Last 24 Hours: My Active Orders 10/23/21 07:45 Amiodarone In Dextrose,Iso-Osm [Nexterone in Dextrose 360 MG/200 ML] 360 mg in 200 ml IV ASDIRECTED - Assessment/Plan Last 24 Hours: My Active Orders 10/23/21 07:45 Amiodarone In Dextrose,Iso-Osm [Nexterone in Dextrose 360 MG/200 ML] 360 mg in 200 ml IV ASDIRECTED
--- NOTE | 2021-10-23 06:06 | CR ---
Chest: Frontal view of the chest was obtained. Comparison: Prior chest x-ray of 10/08/21. Heart size is at the upper limits of normal. Upper mediastinum is normal. Lungs are clear with no acute parenchymal change. Bony structures show nothing acute. Impression: 1. Nothing acute is seen on frontal chest x-ray. Diagnostic code #2
[2021-10-23] MEDS ORDERED: Magnesium Sulfate/Water 2 GM in Premix Bag 1 BAG IV ONE (07:44)
[2021-10-23] MEDS ORDERED: Aspirin 81 MG Tab.Chew PO ONE (07:45)
== END 2021-10-23 09:53 ==
LOC: JD.ED 22:25
DX: I50.9 Heart failure, unspecified (principal); I47.2 Ventricular tachycardia; Z86.16 Personal history of COVID-19
CPT/HCPCS: 36415; 71045; 71045-26; 80053; 83735; 83880; 84484; 85025; 85610; 93005; 96365; 96366; 96368; 99284; 99285-25; A9270-GY; J0282; J3475; U0002

== ENCOUNTER 2021-10-31 00:09 | Emergency (ER) | payer SELFPAY ==
--- NOTE | 2021-10-31 02:04 | EDM.PDOC ---
ED HPI GENERAL MEDICAL PROBLEM - General Chief Complaint: Cardiovascular Problem Stated Complaint: SOB/LIGHTHEADED Time Seen by Provider: 10/31/21 01:34 Source of Information: Reports: Patient History Limitations: Reports: No Limitations - History of Present Illness INITIAL COMMENTS - FREE TEXT/NARRATIVE: Mr. Becerra is a pleasant 56-year-old gentleman with a past medical history significant for congestive heart failure, with a LVEF of 30 to 35% on echocardiogram 10/18/2021, status-post a coronary angiogram (which was clean) and AICD placement on 10/23/2021, who now presents to the ED stating that he has been experiencing dyspnea, head pressure, anxiety, and insomnia whenever he lies down, for the past 4 weeks. He states that he feels chills and hot, although has not had a fever. He states that food tastes has been tasting like wax since 10/27/2021. He states that he saw his Low Pressure Boiler Tender yesterday, and was started on Coumadin. He is scheduled to undergo a VANESA on 11/09/2021. Here in the ED this morning, the patient is found to be hemodynamically stable, afebrile, saturating 98% on room air. He appears to be somewhat anxious, although in no acute distress. The patient denies having a recent sore throat, ear pain, nasal or sinus congestion, cough, chest pain, palpitations, nausea, vomiting, constipation, diarrhea, abdominal pain, urinary symptoms, recent weight gain or weight loss, recent bloody bowel movements or black bowel movements, recent joint aches, headaches, or rashes. The patient's PCP is Lorna Woodard NP. His Low Pressure Boiler Tender is Dr. Curtis Grant. He has not received a COVID vaccination, nor an influenza vaccination this season. - Related Data Allergies Allergy/AdvReac Type Severity Reaction Status Date / Time No Known Allergies Allergy Verified 10/31/21 00:31 Home Meds: Home Meds Amiodarone [Cordarone] 200 mg PO DAILY 10/31/21 [History] Aspirin 81 mg PO DAILY 10/31/21 [History] Furosemide [Lasix] 20 mg PO DAILY 10/31/21 [History] Losartan Potassium 12.5 mg PO DAILY 10/31/21 [History] Metoprolol Succinate [Toprol Xl] 50 mg PO DAILY 10/31/21 [History] Warfarin [Coumadin] 5 mg PO DAILY 10/31/21 [History] Past Medical History HEENT History: Reports: Impaired Vision (wears glasses) Cardiovascular History: Reports: Heart Failure (LVEF 30-35% echo 10/18/2021) - Infectious Disease History Infectious Disease History: Reports: Chicken Pox, Novel Coronavirus - Past Surgical History HEENT Surgical History: Reports: Tonsillectomy Cardiovascular Surgical History: Reports: AICD (placed 10/18/2021), Other (See Below) (Coronary angiogram 2017 [place] 2018 in [place], and 10/18/2021 in [place], all clean) Social & Family History - Tobacco Use Tobacco Use Status *Q: Never Tobacco User Second Hand Smoke Exposure: No - Caffeine Use Caffeine Use: Reports: Tea - Alcohol Use Alcohol Use History: No - Recreational Drug Use Recreational Drug Use: No - Living Situation & Occupation Living situation: Reports: , Alone 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 ED EXAM, GENERAL - Physical Exam Exam: See Below Exam Limited By: No Limitations General Appearance: Alert, WD/WN, No Apparent Distress Eye Exam: Bilateral Eye: EOMI, Normal Inspection Ears: Normal External Exam, Hearing Grossly Normal Nose: Normal Inspection Throat/Mouth: Normal Inspection, Normal Lips, Normal Voice, No Airway Compromise Head: Atraumatic, Normocephalic Neck: Normal Inspection, Full Range of Motion Respiratory/Chest: No Respiratory Distress, Lungs Clear (including at the bases), Normal Breath Sounds, No Accessory Muscle Use, Other (Ecchymosis and healing surgical wound to the left upper chest related to implanted AICD) Cardiovascular: Normal Peripheral Pulses, Regular Rate, Rhythm, No Edema, No Gallop, No JVD, No Murmur, No Rub Peripheral Pulses: 3+: Radial (L), Radial (R) GI/Abdominal: Normal Bowel Sounds, Soft, Non-Tender, No Organomegaly, No Distention, No Abnormal Bruit, No Mass Back Exam: Normal Inspection, Full Range of Motion, NT Extremities: Normal Inspection, Normal Range of Motion, No Pedal Edema, Normal Capillary Refill Neurological: Alert, Oriented, Normal Cognition, No Motor/Sensory Deficits Psychiatric: Anxious Skin Exam: Warm, Dry, Intact, Normal Color, No Rash #1 Interpretation EKG Date: 10/31/21 Time: 00:36 Rhythm: NSR Rate (Beats/Min): 78 [place]: Normal (Borderline LAD) P-Wave: Present QRS: Other (Probable LVH) ST-T: Normal QT: Prolonged (QTc 499 ms) Comparison: No Change (10/22/2021) Course - Vital Signs Last Recorded V/S: Last Vital Signs Temp 36.0 C L 10/31/21 00:26 Pulse 80 10/31/21 00:26 Resp 18 10/31/21 00:26 BP 111/90 10/31/21 00:26 Pulse Ox 98 10/31/21 00:26 - Orders/Labs/Meds Labs: Laboratory Tests 10/31/21 10/31/21 10/31/21 Range/Units 01:10 01:10 01:10 WBC 8.94 (4.23-9.07) K/mm3 RBC 5.04 (4.63-6.08) M/mm3 Hgb 15.4 (13.7-17.5) gm/dl Hct 47.3 (40.1-51.0) % MCV 93.8 H (79.0-92.2) fl MCH 30.6 (25.7-32.2) pg MCHC 32.6 (32.2-35.5) g/dl RDW Std Deviation 46.0 H (35.1-43.9) fL Plt Count 165 (163-337) K/mm3 MPV 12.1 (9.4-12.3) fl Neut % (Auto) 68.9 H (34.0-67.9) % Lymph % (Auto) 18.6 L (21.8-53.1) % [place] % (Auto) 9.7 (5.3-12.2) % Eos % (Auto) 1.7 (0.8-7.0) Baso % (Auto) 0.8 (0.1-1.2) % Neut # (Auto) 6.16 H (1.78-5.38) K/mm3 Lymph # (Auto) 1.66 (1.32-3.57) K/mm3 [place] # (Auto) 0.87 H (0.30-0.82) K/mm3 Eos # (Auto) 0.15 (0.04-0.54) K/mm3 Baso # (Auto) 0.07 (0.01-0.08) K/mm3 Manual Slide Review Abnormal smear PT 13.3 H (9.7-12.0) SECONDS INR 1.21 D-Dimer, Quantitative 2.12 H (0.19-0.50) mg/L Sodium 144 (136-145) mEq/L Potassium 4.4 (3.5-5.1) mEq/L Chloride 106 (98-107) mEq/L Carbon Dioxide 26 (21-32) mEq/L Anion Gap 16.4 H (5-15) BUN 20 H (7-18) mg/dL Creatinine 1.6 H (0.7-1.3) mg/dL Est Cr Clr Drug Dosing TNP Estimated GFR (MDRD) 45 (>60) mL/min BUN/Creatinine Ratio 12.5 L (14-18) Glucose 106 H (70-99) mg/dL Calcium 8.9 (8.5-10.1) mg/dL Magnesium 2.2 (1.8-2.4) mg/dL Total Bilirubin 0.9 (0.2-1.0) mg/dL AST 19 (15-37) U/L ALT 25 (16-63) U/L Alkaline Phosphatase 72 (46-116) U/L Troponin I < 0.017 (0.00-0.056) ng/mL NT-Pro-B Natriuret Pep (0-125) pg/mL Total Protein 6.2 L (6.4-8.2) g/dl Albumin 3.6 (3.4-5.0) g/dl Globulin 2.6 gm/dL Albumin/Globulin Ratio 1.4 (1-2) 10/31/21 Range/Units 01:10 WBC (4.23-9.07) K/mm3 RBC (4.63-6.08) M/mm3 Hgb (13.7-17.5) gm/dl Hct (40.1-51.0) % MCV (79.0-92.2) fl MCH (25.7-32.2) pg MCHC (32.2-35.5) g/dl RDW Std Deviation (35.1-43.9) fL Plt Count (163-337) K/mm3 MPV (9.4-12.3) fl Neut % (Auto) (34.0-67.9) % Lymph % (Auto) (21.8-53.1) % [place] % (Auto) (5.3-12.2) % Eos % (Auto) (0.8-7.0) Baso % (Auto) (0.1-1.2) % Neut # (Auto) (1.78-5.38) K/mm3 Lymph # (Auto) (1.32-3.57) K/mm3 [place] # (Auto) (0.30-0.82) K/mm3 Eos # (Auto) (0.04-0.54) K/mm3 Baso # (Auto) (0.01-0.08) K/mm3 Manual Slide Review PT (9.7-12.0) SECONDS INR D-Dimer, Quantitative (0.19-0.50) mg/L Sodium (136-145) mEq/L Potassium (3.5-5.1) mEq/L Chloride (98-107) mEq/L Carbon Dioxide (21-32) mEq/L Anion Gap (5-15) BUN (7-18) mg/dL Creatinine (0.7-1.3) mg/dL Est Cr Clr Drug Dosing Estimated GFR (MDRD) (>60) mL/min BUN/Creatinine Ratio (14-18) Glucose (70-99) mg/dL Calcium (8.5-10.1) mg/dL Magnesium (1.8-2.4) mg/dL Total Bilirubin (0.2-1.0) mg/dL AST (15-37) U/L ALT (16-63) U/L Alkaline Phosphatase (46-116) U/L Troponin I (0.00-0.056) ng/mL NT-Pro-B Natriuret Pep 2861 H (0-125) pg/mL Total Protein (6.4-8.2) g/dl Albumin (3.4-5.0) g/dl Globulin gm/dL Albumin/Globulin Ratio (1-2) - Re-Assessments/Exams Free Text/Narrative Re-Assessment/Exam: 10/31/21 02:01 A CBC, CMP, magnesium level, troponin, pro-BNP, D-dimer, INR, portable chest x- ray, and ECG were ordered at triage. Portable chest radiograph appears to be grossly normal. The cardiac silhouette is at the upper limits of normal. No pulmonary vascular congestion. No pleural effusions seen on this AP view. No focal infiltrate. No pneumothorax. Left- sided 2 chamber AICD noted. Formal read per the Radiologist pending. 10/31/21 02:11 Notified by Hyun NEWELL that the patient's athletic monitor just indicated 9- beat nonsustained V. tach. 10/31/21 02:37 The patient's CBC is unremarkable. His CMP is remarkable for a BUN/Cr modestly elevated at 20/1.6, and slight hyperglycemia of 106, with the remainder of his CMP being unremarkable. His magnesium level is within normal limits at 2.2. His troponin is undetectably low. His pro-BNP is modestly elevated at 2861. His D-dimer is elevated at 2.12. His PT/INR are mildly elevated at 13.3/1.21. 10/31/21 02:53 Test results discussed with the patient. As above, his pro-BNP is modestly elevated at 2861, but his oxygen saturation is 98% on room air, his lungs are clear to auscultation bilaterally, and his portable chest x-ray does not show signs of pulmonary vascular congestion, therefore he does not appear to be in decompensated CHF. The patient's D-dimer was 0.48 on 10/08/2021. His currently elevated D-dimer is almost certainly due to his recent AICD placement, but I explained that I cannot rule out a PE. I offered to perform a CT angiogram of the chest to evaluate for PE, noting that it will likely cause a transient rise in his creatinine. The patient declined. I will discharge the patient home with the recommendation that he restart his Escitalopram, and take diphenhydramine about an hour before bedtime. Once the escitalopram becomes effective, which may take several days to several weeks, he can discontinue the diphenhydramine. The patient would like a referral to a physician PCP in our clinic. Departure - Departure Time of Disposition: 02:55 Disposition: Home, Self-Care 01 Condition: Good Clinical Impression: Anxiety, Insomnia, Dyspnea - Discharge Information *PRESCRIPTION DRUG MONITORING PROGRAM REVIEWED*: Not Applicable *COPY OF PRESCRIPTION DRUG MONITORING REPORT IN PATIENT JACQUELINE: Not Applicable Instructions: Generalized Anxiety Disorder, Adult, Shortness of Breath, Adult, [id number] Referrals: Lorna Woodard NP [Primary Care Provider] - Manuel Espitia MD [Physician] - Forms: ED Department Discharge Additional Instructions: You were seen in the emergency room for approximately 4 weeks of shortness of breath with head pressure, with associated anxiety and insomnia. Work-up in the ER included numerous blood tests, a chest x-ray, and an ECG. Your kidney function returned modestly impaired, but grossly unchanged from 10/22/2021. Your D-dimer, a measure of blood clot, returned elevated at 2.12, which is most likely due to your recent AICD placement, but could be due to a blood clot in your lungs. Evaluation with a CT angiogram of your chest to look for a blood clot was offered, but declined. Your pro-BNP, a measure of the stretch of your heart, was found to be modestly elevated at 2861, but your oxygen saturation is normal, your lungs are clear to auscultation, and your chest x-ray showed no signs of decompensated CHF. The remainder of your work-up was unremarkable. Based on your history, physical exam, and ER tests, the cause of your symptoms is most likely due to anxiety. We recommend that you restart your Escitalopram, and take [id number] diphenhydramine, 25 to 50 mg about 1 hour before bedtime, every night. Once the Escitalopram begins to take effect, which usually takes a few days, but may take a few weeks, you can discontinue the diphenhydramine. Please follow-up with Dr. Manuel Espitia, or one of the other providers in the clinic, to establish a PCP. If any other problems, please do not hesitate to return to the ER. Sepsis Event Note (ED) - Evaluation Sepsis Screening Result: No Definite Risk
--- NOTE | 2021-10-31 06:49 | CR ---
Chest: Frontal view of the chest was obtained. Comparison: Prior chest x-ray of 10/22/21. AICD is present which is an interval change from prior exam. Heart is slightly enlarged. Upper mediastinum is within normal limits. Linear density is seen within the right midlung whch is believed to represent scarring. Lungs otherwise are clear with no acute parenchymal change. Bony structures show nothing acute. Impression: 1. AICD. This is an interval change from prior chest x-ray. 2. Heart is slightly enlarged. 3. Nothing acute is appreciated. Diagnostic code #2
== END 2021-10-31 03:15 | disposition home or self-care (01) ==
LOC: JD.ED 00:09
DX: F41.9 Anxiety disorder, unspecified (principal); G47.00 Insomnia, unspecified; R06.00 Dyspnea, unspecified; R79.89 Other specified abnormal findings of blood chemistry; Z79.82 Long term (current) use of aspirin; Z79.01 Long term (current) use of anticoagulants; Z79.899 Other long term (current) drug therapy
CPT/HCPCS: 36415; 71045; 71045-26; 80053; 83735; 83880; 84484; 85025; 85379; 85610; 93005; 99285-25

== ENCOUNTER 2021-12-15 03:27 | Emergency (ER) | payer OTHER ==
[2021-12-15] MEDS ORDERED: Codeine/guaiFENesin 10-100 MG/5 ML Syrup 5 ML Cup PO ONE (04:05)
[2021-12-15] MEDS ORDERED: Ondansetron 4 MG/2 ML SDV IVPUSH ONE (05:24)
[2021-12-15] MEDS ORDERED: Iopamidol 755 Mg/ML 100 ML Bottle IVPUSH ONE (05:55)
[2021-12-15] MEDS ORDERED: Sodium Chloride 0.9% 10 ML SDV FLUSH ONE (05:55)
[2021-12-15] MEDS ORDERED: Sodium Chloride 0.9% 100 ML IV SCH (06:00)
== END 2021-12-15 07:29 | disposition home or self-care (01) ==
LOC: JD.ED 03:27
DX: R05.9 Cough, unspecified (principal); R11.2 Nausea with vomiting, unspecified; I50.9 Heart failure, unspecified; R94.31 Abnormal electrocardiogram [ECG] [EKG]; Z86.16 Personal history of COVID-19; Z95.810 Presence of automatic (implantable) cardiac defibrillator; Z79.01 Long term (current) use of anticoagulants; Z79.899 Other long term (current) drug therapy
CPT/HCPCS: 36415; 71045; 71275; 80053; 83735; 83880; 85027; 93005; 96374; 99285; A9270; J2405; Q9967; 93010; 99284